=== PATIENT | male | born 1965 | race African-American/Black ===

== ENCOUNTER 2016-09-25 13:56 | Inpatient (IN) | payer MEDICARE, OTHER ==
--- NOTE | ~2016-09-25 | OR ---
Unit #: [id number] #: [id number] Patient: ALEXX QUIROZ [id number] [facility] [address] [place], [place] [address] [id number] Sarah MR#: [id number] NAME: ALEXX QUIROZ ROOM: 218 Date of Procedure: 09/26/2016 Admission Date: 09/25/2016 Surgeon: Fernando Wharton M.D. : 1965 Attending Physician: Khloe Claudio M.D. Primary Care Physician: Remy Rose M.D. OPERATIVE REPORT PROCEDURE PERFORMED 1. Ligation of left radiocephalic arteriovenous fistula. 2. Revision of left arteriovenous fistula to brachiocephalic arteriovenous fistula. PREOPERATIVE DIAGNOSIS Ruptured left radiocephalic arteriovenous fistula. POSTOPERATIVE DIAGNOSIS Ruptured left radiocephalic arteriovenous fistula. [employer] Darian Kidd M.D. INDICATIONS This is a 51-year-old male who has had a long-standing left radiocephalic AV fistula, for nearly eight years. Back in 2014, he was seen by our group for concern for bleeding from the fistula and at that time, a revision was recommended. The patient deferred treatment at that time. The patient presented to [facility] Emergency Room yesterday with concerns for continued bleeding in the past week. He had two aneurysmal segments of his left radiocephalic AV fistula with a nice thrill. He was being set up for a revision of his left radiocephalic AV fistula when today he spontaneously bled again. There was significant bleeding that was not easily controlled with pressure. Upon my evaluation of the patient, it was clear that it would not be controlled with manual pressure, or with a stitch, and I made a decision to take him emergently to the operating room. I talked to the patient about the risks and benefits of the operation. The risks of the operation included, bleeding, nerve injury, injury to blood vessels, and loss of the fistula. The benefit of procedure would be to stop the bleeding, but potentially preserve the fistula. He expressed understanding and elected to proceed with the operation. DESCRIPTION OF PROCEDURE After informed consent was obtained, the patient was brought emergently down to the operating room. I maintained manual pressure, while the patient was induced and intubated without incident. The patient's left arm, chest, and neck were all prepped and draped, while I held manual pressure. We then transitioned to hold manual pressure, as I scrubbed in. I then placed a sterile tourniquet above the upper arm, and this was insufflated up to 300 mmHg. With adequate hemostasis obtained, manual Unit #: [id number] #: [id number] Patient: ALEXX QUIROZ pressure was relieved off the left forearm and there was no active bleeding. I then re-prepped the field with some Betadine. On exam, the patient had a clearly visible ruptured fistula through his skin. I extended the incision in elliptical fashion and proceeded to dissect around the fistula itself. I gained proximal and distal visualization of the fistula and was able to get circumferential control. The fistula was then clamped with a right angle and transected, and both ends were oversewn with 4-0 Prolene in a Suraj suture. There was no significant bleeding from the left forearm incision. I then turned my attention towards the antecubital fossa. The patient had the easily visible cephalic vein. I made a horizontal incision approximately one fingerbreadth below the antecubital fossa and dissected through the subcutaneous tissue. We immediately came upon a very large approximately 7 mm cephalic vein. There was a branch point to the median antecubital vein as well. This was dissected proximally and distally, until we had adequate length. I then turned my attention towards the brachial artery, and entered the brachial sheath with electrocautery. I came upon the brachial artery and paired with its veins. It was dissected free of its veins proximally and distally. There was a posterior branch, which was taken with 3-0 silk ligatures. I then obtained vessel loop control of the brachial artery. At this point, the patient was given 5000 units of heparin. I then ligated the cephalic vein just proximal to its median antecubital vein junction. The vein was widely patent. I then clamped the brachial artery and made an oblique incision with a #11 blade, and then extended the arteriotomy with Knapp scissors. I then beveled my cephalic vein and it was then sewn into the brachial artery with 6-0 Prolene in a running fashion. Prior to completion of anastomosis, I flushed and back bled the fistula. I then completed the anastomosis and adequate hemostasis obtained, with no repair sutures needed. The patient had an easily palpable thrill felt throughout. Adequate hemostasis was obtained with manual pressure. The antecubital fossa incision was then reapproximated with 3-0 Vicryl in deep dermal fashion and 4-0 Monocryl in subcuticular fashion. The incision was then covered with Dermabond. The forearm incision was reapproximated with 3-0 Vicryl in deep dermal fashion and then closed with 3-0 nylon in simple interrupted fashion. At the end of the case, we were short one needle and the needle count was not correct and x-ray did not demonstrate any evidence of the needle in the wound bed. Dictated by... David Ibrahim TD: 09/27/2016 11:23 JOB #: [id number] Unit #: [id number] #: [id number] Patient: ALEXX QUIROZ OPERATIVE REPORT Page 1 of 1 X X PROCEDURE OPERATIVE NOTE
--- NOTE | ~2016-09-25 | CO ---
Unit #: [id number] #: [id number] Patient: ALEXX QUIROZ [id number] [id number] [facility]. [place], [place] [address] [id number] I MR#: [id number] NAME: ALEXX QUIROZ ROOM: 218 Age: 51 Sex: M Admission Date: 09/25/2016 : 1965 Attending Physician: Khloe Claudio M.D. Primary Care Physician: Remy Rose M.D. Consultation Date: 09/25/2016 CONSULTATION REPORT REASON FOR CONSULTATION Left AV fistula, bleeding. HISTORY OF PRESENT ILLNESS This is a 51-year-old male, who has had a long-standing left radiocephalic AV fistula for end-stage renal disease. He states that the fistula has been placed roughly since 2007. He was last seen by Dr. Ann in 09/2014 for concern for bleeding from the fistula, but at that time, reportedly the patient deferred any further intervention. The patient states that dialysis has been going well, he reports no issues with dialysis itself. He states that he has not been bleeding after dialysis, but instead, the fistula has been bleeding spontaneously at home. It occurred again today, he was concerned and went to the emergency room. He was initially seen last week for the same issue, and was established to see a vascular surgeon at [facility]. The patient denies any left hand pain, numbness, or weakness. He has not had any interventions to the fistula that he reports. He dialyzes on Sunday, , Sunday. He denies any fevers, chills, or chest pains. PHYSICAL EXAMINATION VITAL SIGNS: Temperature 98.3, heart rate 89, blood pressure 144/100, saturations 100% on 2 L. CONSTITUTIONAL: No acute distress. Well appearing. EYES: No scleral icterus. NECK: No JVD or carotid bruit. LYMPH: No lymphadenopathy in the neck or groins. PULSE: Left upper extremity has a strong thrill. There were two aneurysmal areas noted in the forearm, no active bleeding noted. He has a visible thrill felt throughout the cephalic vein in his left upper arm. RESPIRATIONS: Nonlabored. GI: Soft, nontender, nondistended. Healed incisions. SKIN: No rashes or ulcerations. PSYCHIATRIC: Normal mood and affect. PAST MEDICAL HISTORY Includes end-stage renal disease, on dialysis; hepatitis C with cirrhosis; coronary artery disease; history of atrial flutter/atrial fibrillation; hypertension; COPD; asthma; ischemic cardiomyopathy; chronic systolic heart failure; obstructive sleep apnea; history of GI bleed; GERD; active smoker. PAST SURGICAL HISTORY Includes ex lap for a GI bleed, testicle removal for testicular cancer, gastric bypass, left AV fistula, and neck surgery. Unit #: [id number] #: [id number] Patient: ALEXX QUIROZ HOME MEDICATIONS Reportedly are sodium bicarb, Xanax, Norvasc, Toprol-XL, Lasix, Catapres, lisinopril, minoxidil, Sensipar, Florastor, Renagel, Protonix, Imdur. ALLERGIES Aspirin, Coumadin, octreotide, dilaudid. SOCIAL HISTORY Lives with family. Positive daily alcohol use, positive tobacco use. FAMILY HISTORY Denies any known history of bleeding disorders, clotting disorders, or aneurysms. REVIEW OF SYSTEMS Other than what is stated above: CONSTITUTIONAL: No fevers or chills. ENT: No ear pain, tinnitus. RESPIRATORY: Denies any shortness of breath, cough, or paroxysmal nocturnal dyspnea. CARDIOVASCULAR: Denies any chest pain or palpitations. GI: Denies any nausea, vomiting, diarrhea. : Denies any hematuria. HEME: Denies any easy bruising, other than what I stated above. ENDOCRINE: Denies any excessive thirst or hunger. MUSCULOSKELETAL: Denies any back pain or neck pain. INTEGUMENTARY: Denies any rash or pruritus. DIAGNOSTIC STUDIES LABORATORY RESULTS: CBC; 5.4, hematocrit 34.7, platelets 202. INR 1.1, BMP is pending. ASSESSMENT AND PLAN 1. End-stage renal disease, dialyzes on Sunday, , Sunday. I believe it is okay for him to continue access for fistula for now, though ideally in different location, where they have currently been accessing it. The entire length of the cephalic vein appears well dilated and has a strong thrill. I told the patient, and also the nurse to pass on report, that his current dressing over his wrist has a procoagulant fibrillar on it, which should not be removed, as it may remove the clot overlying the fistula. This would then result in significant exsanguination. 2. Vascular access with complication, bleeding: The patient has adequate cephalic vein throughout his entire arm. I do not believe it is an issue of central stenosis, but more so just chronic AV fistula, with aneurysmal changes and thinning of the skin overlying it. Given the radiocephalic fistula, one option would be to revise at this location; although, alternatively, I think it may just be better off to ligate this aspect of the fistula, and convert them to a brachiocephalic fistula, below the antecubital fossa. Likely, also place a tunneled dialysis catheter at this time, to ensure adequate maturation of the fistula; although, he should not take that long. The patient was agreeable to the plan. Dictated by... David Ibrahim/morgan Unit #: [id number] #: [id number] Patient: ALEXX QUIROZ TD: 09/26/2016 06:01 JOB #: [id number] CONSULTATION REPORT Page 1 of 1 X X CONSULTATION REPORT
--- NOTE | ~2016-09-25 | DS ---
Unit #: [id number] #: [id number] Patient: ALEXX SEGURA [id number] [address] [address] [id number] I MR#: [id number] NAME: ALEXX SEGURA ROOM: 218 Age: 51 Sex: M Admission Date: 09/25/2016 : 1965 Discharge Date: 09/28/2016 Attending Physician: Khloe Claudio M.D. Primary Care Physician: Remy Rose M.D. DISCHARGE SUMMARY FINAL DIAGNOSES 1. Ruptured left radiocephalic arteriovenous fistula. 2. Left arteriovenous fistula bleeding. 3. Vomiting and abdominal pain with history of dumping syndrome with a history of gastric surgery in the past. 4. Chronic kidney disease, on hemodialysis. 5. Coronary artery disease. 6. Chronic obstructive pulmonary disease. 7. Hypertension. 8. History of hepatitis C. DISCHARGE MEDICATIONS Continue home medications, which are sodium bicarb 650 mg t.i.d., lactulose 10 g q.8 hourly, Desyrel 100 mg at bedtime, Colestid 1 g q.12 hourly, Bentyl 20 mg q.6 hourly, alprazolam as needed, metoprolol 100 mg q.12, atorvastatin 20 mg daily, clonidine 0.2 mg daily, hydroxyzine 50 mg q.8 hourly, Sensipar 30 mg daily, hydrocodone 10/325 one tablet q.4 p.r.n., sevelamer carbonate tablet 800 mg t.i.d., Os-Jason 500 mg b.i.d., vitamin D 1000 units daily. CONSULTATION DURING HOSPITALIZATION 1. Dr. Keane from [facility]. 2. Dr. Wharton from vascular surgery. PROCEDURE PERFORMED DURING HOSPITALIZATION Ligation of the left radiocephalic arteriovenous fistula and revision of the left arteriovenous fistula to brachiocephalic arteriovenous fistula. This procedure was performed by Dr. Wharton on 09/26/2016. DIAGNOSTIC STUDIES LABORATORY RESULTS: Upon discharge, WBC 6.8, hemoglobin 9.5, hematocrit 29.3, platelet count of 160. Sodium 135, potassium 4.9, chloride 98, BUN 71, creatinine 11.6. The patient has had dialysis since then. HOSPITAL COURSE Mr. Alexx Segura is a 51-year-old male, who was admitted to the hospital, because of bleeding in the left AV fistula. Dr. Wharton was consulted and in the hospital, this ruptured. The patient was taken to surgery and revision was done. The patient is doing much better at this time. Dialysis has been done postprocedure. The patient is being discharged home. PHYSICAL EXAMINATION Unit #: [id number] #: [id number] Patient: ALEXX SEGURA VITAL SIGNS: On discharge, blood pressure is 141/69, respiratory rate 18, pulse is 84, temperature 98.2. CHEST: Fair air entry. Decreased at the bases. CVS: Regular rhythm. DISCHARGE INSTRUCTIONS 1. The patient is being discharged home in stable condition. 2. Follow up with primary care provider in 1 week. 3. Medication as per med rec. 4. Continue hemodialysis per Renal. 5. Follow up with Vascular as scheduled. Dictated by... David Eng/morgan TD: 09/28/2016 23:54 JOB #: [id number] DISCHARGE SUMMARY Page 1 of 1 X Khloe Claudio MD X DISCHARGE SUMMARY
--- NOTE | ~2016-09-25 | HP ---
Unit #: [id number] #: [id number] Patient: ALEXX SEGURA [id number] [address] [address] [id number] I MR#: [id number] NAME: ALEXX SEGURA ROOM: 218 Age: 51 Sex: M Admission Date: 09/25/2016 : 1965 Attending Physician: Khloe Claudio M.D. Primary Care Physician: Remy Rose M.D. HISTORY AND PHYSICAL The patient was admitted on 09/25/16 with bleeding from the left dialysis shunt. HISTORY OF PRESENTING ILLNESS Mr. Alexx Segura is a 51-year-old -[place] male with multiple medical problems. He has had longstanding radiocephalic AV fistula. He has a history of end stage failure and is on hemodialysis. It has been going on for the last few days, a few times that he has bled. It bleeds spontaneously. It occurred while he was driving. EMS was called and he was brought to ER. The patient came to ER even last week for the same issue but he was discharged to see a vascular surgeon as an outpatient. The patient does not complain of any pain, does not complain of any weakness or numbness. His only complaint is bleeding. He has end stage renal disease on hemodialysis per Dr. Keane. He does not complain. Denies any history of fever, history of chills. No history of chest pain, no history of abdominal pain, no shortness of breath, no palpitations. PAST MEDICAL HISTORY 1. End stage renal disease, on hemodialysis. 2. Hepatitis C. 3. Coronary artery disease. 4. History of arrhythmias. 5. Hypertension. 6. Hyperlipidemia. 7. COPD. 8. Cardiomyopathy. 9. Obstructive sleep apnea. 10. GERD. PAST SURGICAL HISTORY 1. Abdominal surgery for GI bleed. 2. Testicle removal for testicular cancer. 3. History of gastric bypass. 4. Left AV fistula placement. 5. Neck surgery. SOCIAL HISTORY The patient lives at home with his family. He does smoke and drinks alcohol off and on. ALLERGIES The patient is allergic to aspirin, Coumadin, octreotide and Dilaudid. FAMILY HISTORY Unit #: [id number] #: [id number] Patient: ALEXX SEGURA Unremarkable. REVIEW OF SYSTEMS No history of dizziness, no history of syncopal episode. No history of fever, chills or rigors. No history of weakness or numbness or tingling. No history of chest pain, no history of abdominal pain, no history of constipation, diarrhea. PHYSICAL EXAMINATION GENERAL: The patient is in no respiratory distress. HEENT: Head is normocephalic. Eyes - pupils are equal and reacting to light. No conjunctival congestion. NECK: Supple. CHEST: Fair air entry. No additional sounds. CVS: S1, S2 positive. Regular rhythm. EXTREMITIES: Left extremity - two aneurysmal areas noted in the forearm. Visible thrill was felt. Negative edema. ABDOMEN: Soft, no tenderness. SKIN: No rashes. DIAGNOSTIC STUDIES LABORATORY: WBC 5.4, hematocrit 34.7, platelet count 202, INR 1.1. ASSESSMENT AND PLAN The patient is being admitted to Med/Tre unit with: 1. Bleeding from the dialysis shunt on the left arm. 2. Vomiting/abdominal pain: The patient has a history of dumping syndrome after he had his gastric surgery but that has resolved at this time. 3. Chronic kidney disease, on hemodialysis. 4. Coronary artery disease which is stable. 5. Chronic obstructive pulmonary disease is stable. 6. Hypertension is stable. 7. History of hepatitis C. Med Rec has been reviewed. Vascular surgeon has been consulted. Dr. Keane has been consulted. [facility]charge summary from [facility] will be obtained. Plan of care has been discussed with patient. Refer to progress note for further orders. Dictated by David Eng TD: 09/27/2016 10:35 JOB #: [id number] (Continuation) Dictated by David Eng Unit #: [id number] #: [id number] Patient: ALEXX SEGURA TD: 09/27/2016 10:44 JOB #: [id number] HISTORY AND PHYSICAL Page 1 of 1 X Khloe Claudio MD HISTORY AND PHYSICAL
[~2016-09-25 13:56] MED LIST: ALBUTEROL17 GM INH; ALPRAZOLAM ER1 MG PO; ALPRAZOLAM PO; ANTACID650 MG PO; ASPIRIN ENTERI325 M1 PO; CALCIUM ACETAT667 M1 PO; CARAFATE PO; CARAFATE1 GM PO; CARDURA4 M1 PO; CATAPRES0.1 MG PO; CATAPRES0.3 MG PO; CLARITIN10 M2 PO; CLONIDINE PO; DAKIN'S MODIF1000 ML EXT; DULOXETINE HCL60 MG PO; FLONASE 0.05% N16 G1; FLORASTOR250 M1 PO; FUROSEMIDE40 MG PO; HYDRALAZINE HC100 MG PO; HYDRALAZINE HCL25 MG PO; ISORDIL TEMBIDS40 M1 PO; ISORDIL40 MG PO; ISOSORBIDE DINI40 MG PO; LASIX PO; LEVOFLOXACIN250 MG PO; LISINOPRIL PO; LISINOPRIL2.5 MG PO; LISINOPRIL20 MG PO; LISINOPRIL5 MG PO; LOPRESSOR PO; METOPROLOL SUCC25 MG PO; MINOXIDIL2.5 MG PO; NORVASC PO; NORVASC10 MG PO; OXYCODONE HCL10 MG PO; PERCOCET 10/3251 TAB PO; PHOSLO667 M1 PO; PHOSLO667 MG PO; PROTONIX PO; RENAGEL800 MG PO; SENSIPAR30 MG PO; SENSIPAR60 MG PO; SOD BICARBONATE PO; SODIUM BICARBO650 MG PO; TOPROL XL 50 MG50 MG PO; TUSSIONEX PENN473 ML PO; VANCOMYCIN HCL1 GM IV; VANCOMYCIN1.5 GM/252 IV; XANAX1 MG PO; [UNRECOGNIZED DRUG - REMARK]
[2016-09-25] MEDS ORDERED: LIPITOR20 MG PO (14:11)
[2016-09-25] MEDS ORDERED: CALCIUM 500 +1 EAC6 PO (14:12)
[2016-09-25] MEDS ORDERED: [UNRECOGNIZED DRUG - REMARK] PO (14:13)
[2016-09-25] MEDS ORDERED: VITAMIN D1000 UNI1 PO (14:13)
[2016-09-25] MEDS ORDERED: COLESTIPOL HCL11 PO (14:16)
[2016-09-25] MEDS ORDERED: BENTYL20 MG PO (14:17)
[2016-09-25] MEDS ORDERED: DIPHENOXYLATE/A1 TA2 PO (15:12)
[2016-09-25] MEDS ORDERED: HYDRALAZINE HCL50 MG PO (15:13)
[2016-09-25] MEDS ORDERED: TOPROL XL100 MG PO (15:14)
[2016-09-25] MEDS ORDERED: LACTULOSE10 G/15 M3 PO (15:14)
[2016-09-25] MEDS ORDERED: ONDANSETRON HCL4 M1 PO (15:15)
[2016-09-25 15:16] LABS: BASOPHIL% 0.9 % (0-2.5); EOSINOPHIL# 0.1 X10e3 (0-0.7); EOSINOPHIL% 2.4 % (0.0-7.0); HEMATOCRIT 34.7 % (38.0-50.0); HEMOGLOBIN 11.2 gm/dL (13.0-16.0); LYMPHOCYTE# 0.9 X10e3 (1.0-3.5); LYMPHOCYTE% 16.8 % (17.0-45.0); MEAN CELL VOLUME 94.2 FL (83-96); MEAN CORPUSCULAR HEMOGLOBIN 30.5 PG (28-34); MEAN CORPUSCULAR HGB CONC 32.4 g/dL (30-36); MEAN PLATELET VOLUME 9.3 FL (6.5-11.5); MONOCYTE# 0.3 X10e3 (0-1.0); MONOCYTE% 6.4 % (3.0-12.0); NEUTROPHIL# 3.9 X10e3 (1.5-7.1); NEUTROPHIL% 73.5 % (40-75); PLATELET COUNT 202 X10e3 (140-420); RED BLOOD COUNT 3.68 X10e (3.90-5.60); RED CELL DISTRIBUTION WIDTH 17.1 % (11.0-15.5); WHITE BLOOD COUNT 5.4 X10e3 (4.0-10.5)
[2016-09-25] MEDS ORDERED: RENVELA800 MG DOB (15:16)
[2016-09-25 15:17] LABS: DIFF IND NO
[2016-09-25] MEDS ORDERED: ANTACID650 MG PO (15:17)
[2016-09-25] MEDS ORDERED: TRAZODONE HCL5 GM PO (15:17)
[2016-09-25] MEDS ORDERED: CATAPRES-TTS-20.2 MG PO (15:19)
[2016-09-25] MEDS ORDERED: HYDROCODON-ACE1 EAC5 PO ×2 (15:28→15:29)
[2016-09-25 15:34] LABS: INR 1.1; PARTIAL THROMBOPLASTIN TIME 27.8 SECONDS (23.5-31.3); PROTHROMBIN TIME (PATIENT) 11.5 SECONDS (9.6-11.5)
[2016-09-25 16:19] LABS: BILIRUBIN, DIRECT 0.1 mg/dL (0.0-0.2); BILIRUBIN,INDIRECT 0.7 mg/dL (0.0-0.9); BILIRUBIN,TOTAL 0.8 mg/dL (0.2-2.0); BUN/CREATININE RATIO 6.44; CALCIUM SERUM 8.8 mg/dL (8.4-10.2); CREATININE SERUM 12.1 mg/dL (0.6-1.4); GLOM FILT RATE Estimated 4.9 mL/min (>60); POTASSIUM 4.4 mmol/L (3.5-5.1); PROTEIN TOTAL SERUM 8.5 g/dL (6.0-8.3)
[2016-09-25] MEDS ORDERED: ALPRAZOLAM (16:37)
[2016-09-26 07:07] LABS: HEMATOCRIT 34.6 % (38.0-50.0); HEMOGLOBIN 11.2 gm/dL (13.0-16.0); MEAN CELL VOLUME 94.9 FL (83-96); MEAN CORPUSCULAR HEMOGLOBIN 30.6 PG (28-34); MEAN CORPUSCULAR HGB CONC 32.3 g/dL (30-36); MEAN PLATELET VOLUME 9.5 FL (6.5-11.5); RED BLOOD COUNT 3.65 X10e (3.90-5.60); RED CELL DISTRIBUTION WIDTH 17.2 % (11.0-15.5)
[2016-09-26 07:13] LABS: WHITE BLOOD COUNT 8.4 X10e3 (4.0-10.5)
[2016-09-26] MEDS ORDERED: CLONIDINE PO (07:37)
[2016-09-27 05:30] LABS: HEMATOCRIT 30.4 % (38.0-50.0); HEMOGLOBIN 9.9 gm/dL (13.0-16.0); MEAN CELL VOLUME 93.8 FL (83-96); MEAN CORPUSCULAR HEMOGLOBIN 30.6 PG (28-34); MEAN CORPUSCULAR HGB CONC 32.6 g/dL (30-36); MEAN PLATELET VOLUME 9.4 FL (6.5-11.5); RED BLOOD COUNT 3.24 X10e (3.90-5.60); RED CELL DISTRIBUTION WIDTH 17.4 % (11.0-15.5); WHITE BLOOD COUNT 7.7 X10e3 (4.0-10.5)
[2016-09-27 05:46] LABS: INR 1.1; PROTHROMBIN TIME (PATIENT) 11.6 SECONDS (9.6-11.5)
[2016-09-27 06:23] LABS: BUN/CREATININE RATIO 6.12; CALCIUM SERUM 7.6 mg/dL (8.4-10.2); CREATININE SERUM 11.6 mg/dL (0.6-1.4); GLOM FILT RATE Estimated 5.1 mL/min (>60); POTASSIUM 4.9 mmol/L (3.5-5.1)
[2016-09-28 05:56] LABS: HEMATOCRIT 29.3 % (38.0-50.0); HEMOGLOBIN 9.5 gm/dL (13.0-16.0); MEAN CELL VOLUME 95.2 FL (83-96); MEAN CORPUSCULAR HEMOGLOBIN 30.9 PG (28-34); MEAN CORPUSCULAR HGB CONC 32.5 g/dL (30-36); MEAN PLATELET VOLUME 9.7 FL (6.5-11.5); RED BLOOD COUNT 3.08 X10e (3.90-5.60); RED CELL DISTRIBUTION WIDTH 17.7 % (11.0-15.5); WHITE BLOOD COUNT 6.8 X10e3 (4.0-10.5)
[2016-09-28 15:36] LABS: HEP B SURFACE AG Nonreactive (Nonreactive)
== END 2016-09-28 18:12 | disposition home or self-care (01) | DRG 252 ==
LOC: CED 13:56 → CEDOF 14:14 → C2A 16:07
PROVIDERS: Internal Medicine Nephrology; Physician Assistant Medical; Surgery
PROC: 05LF0ZZ Occlusion of Left Cephalic Vein, Open Approach (ICD-10-PCS; 2016-09-26)
PROC: 03180ZD Bypass Left Brachial Artery to Upper Arm Vein, Open Approach (ICD-10-PCS; 2016-09-26)
PROC: 5A1D60Z (ICD-10-PCS; 2016-09-26)
PROC: 30233N1 Transfusion of Nonautologous Red Blood Cells into Peripheral Vein, Percutaneous Approach (ICD-10-PCS; principal; 2016-09-26 15:30)
DX: T82.838A Hemorrhage due to vascular prosthetic devices, implants and grafts, initial encounter (principal); N18.6 End stage renal disease; I13.2 Hypertensive heart and chronic kidney disease with heart failure and with stage 5 chronic kidney disease, or end stage renal disease; E11.22 Type 2 diabetes mellitus with diabetic chronic kidney disease; K73.9 Chronic hepatitis, unspecified; I50.22 Chronic systolic (congestive) heart failure; F41.9 Anxiety disorder, unspecified; M51.36 Other intervertebral disc degeneration, lumbar region; E66.9 Obesity, unspecified; I25.10 Atherosclerotic heart disease of native coronary artery without angina pectoris; J44.9 Chronic obstructive pulmonary disease, unspecified; J45.909 Unspecified asthma, uncomplicated; I48.91 Unspecified atrial fibrillation; I25.5 Ischemic cardiomyopathy; K21.9 Gastro-esophageal reflux disease without esophagitis; Z88.6 Allergy status to analgesic agent; Z88.8 Allergy status to other drugs, medicaments and biological substances; G47.33 Obstructive sleep apnea (adult) (pediatric); I72.9 Aneurysm of unspecified site
CPT/HCPCS: 36415; 80048; 80076; 82947; 85025; 85027; 85610; 85730; 86850; 86900; 86901; 86923; 87340; 99285; J0330; J0690; J1644; J1815; J2250; J2270; J2370; J2405; J2765; J3010; P9016; Q4081

== ENCOUNTER 2016-09-29 17:18 | Inpatient (IN) | payer MEDICARE, OTHER ==
--- NOTE | ~2016-09-29 | US140 ---
[facility] A Service of [facility] RADIOLOGY TEXT RESULTS PATIENT: ALEXX QUIROZ LOCATION: [facility] [address]-20 : [birth year] UNIT #: [id number] AGE: [address]: Dmitri Mares MD SEX: M ORDER DR: [id number] [facility] [address] [place], [place] [address] [id number] I MR#: [id number] Acc #: [id number] NAME: ALEXX QUIROZ : 1965 SEX: M STUDY DATE/TIME: 09/29/2016 16:32 UNIT: [facility] ROOM: 42937 STUDY DESCRIPTION: US UE Veins Unilat or Ltd Stdy Attending Physician: Dmitri Mares M.D. Ordering Physician: Barry Gonzalez M.D. Primary Care Physician: Go Lam A.P.R.N. MEDICAL IMAGING REPORT This report is preliminary unless electronic signature is present EXAM Left upper extremity DVT study dated 09/29/2016. COMPARISON None. HISTORY Left upper extremity swelling and pain for 3 days. First fistula at the wrist, second fistula in the antecubital fossa with recent replacement 3 days ago. FINDINGS Structural champion-scale analysis, color-Doppler flow analysis and waveform analysis of the left upper extremity major veins were performed as per the protocol. Visualized portions of the left internal jugular vein, left subclavian vein, left axillary vein demonstrate expected phasic spontaneous flow with respiration. There is a fistula noted in the proximal left cephalic vein. No obvious flow is seen in the distal cephalic vein nor is it compressible. There is a fistula noted in the proximal and distal basilic vein also. The superficial brachial vein does not demonstrate flow and is not compressible. IMPRESSION 1. Deep venous thrombus is seen in the brachial vein. 2. The cephalic vein contains fistula but there is also superficial venous thrombosis noted in the distal cephalic vein which could not be compressed. 3. Attempts are made to contact the referring physician Dr. Levi Mason at [facility] at 05:20 p.m. on 09/29/2016. Findings were discussed with Christa Cross who was covering for him at 05:40 p.m. on 09/29/2016. Dictated by... [facility] A Service of [facility] RADIOLOGY TEXT RESULTS PATIENT: ALEXX QUIROZ LOCATION: [facility] [address]89-13 : [birth year] UNIT #: [id number] AGE: [address]: Dmitri Mares MD SEX: M ORDER DR: Neli Lopez M.D. THIS IS AN ELECTRONICALLY VERIFIED REPORT Neli Lopez M.D. at 10/04/2016 8:44 AM CPR/rnr TD: 09/30/2016 02:30 JOB #: [id number] MEDICAL IMAGING REPORT Page 1 of 1 COPY
--- NOTE | ~2016-09-29 | HP ---
Unit #: [id number] #: [id number] Patient: ALEXX SEGURA [id number] [address] [address] [id number] I MR#: [id number] NAME: ALEXX SEGURA ROOM: 46882 Age: 51 Sex: M Admission Date: 09/29/2016 : 1965 Attending Physician: Dmitri Mares M.D. Primary Care Physician: Go Lam A.P.R.N. HISTORY AND PHYSICAL ADMISSION DIAGNOSES 1. New acute DVT in the left upper extremity. 2. End stage renal disease on hemodialysis. 3. Status post left AV fistula repair secondary to rupture. 4. History of coronary artery disease. 5. History of COPD. 6. History of hepatitis C. 7. Hypertension. HISTORY OF PRESENT ILLNESS Mr. Segura is a 51-year-old, -Israeli gentleman patient of Dr. Rose who was discharged from our service yesterday when he was admitted and treated for his ruptured left AV fistula. He is status post repair per vascular surgery, was stabilized, and discharged yesterday; however, comes back today with the complaints of increasing pain and swelling. Ultrasound was done, which showed the acute brachial vein DVT. Patient denies any other symptoms. Denies any chest pain, shortness of air, and dyspnea. Denies any fever, chills, nausea, vomiting, diarrhea, headache, or dizziness. REVIEW OF SYSTEMS So, 12-point review of systems on this patient is basically negative, except as above. PAST MEDICAL HISTORY Significant for end stage renal disease on hemodialysis, history of hep. C, history of coronary artery disease, history of arrhythmias, history of hypertension, dyslipidemia, COPD, cardiomyopathy, obstructive sleep apnea, and GERD. PAST SURGICAL HISTORY Significant for, again, recent AV fistula repair and, also, orchiectomy secondary to testicular cancer, history of gastric bypass, history of AV fistula placement, and history of neck surgery. MEDICATIONS Home medications on this gentleman include: 1. Lipitor. 2. Calcium with vitamin D. 3. Colestipol. 4. Bentyl. 5. Zofran. 6. Toprol XL. 7. Lactulose. Unit #: [id number] #: [id number] Patient: ALEXX SEGURA 8. Hydralazine. 9. Renvela. 10. Antacid. 11. Trazodone. 12. Hydrocodone. 13. Xanax. 14. Catapres. ALLERGIES Allergic to aspirin, warfarin, octreotide, and Dilaudid. SOCIAL HISTORY He is an active smoker and he is drinking alcohol occasionally. FAMILY HISTORY Unremarkable. PHYSICAL EXAMINATION GENERAL APPEARANCE: He is a 51-year-old gentleman in no acute distress. VITAL SIGNS: BP 138/74, heart rate 90, respirations 23, and temperature 98.3. HEENT: Head is atraumatic. Pupils are equal, round, and reactive to light and accommodation. Extraocular muscles intact. Oropharynx clear. NECK: Supple. No mass. No JVD. No bruits. CHEST: Diminished bilaterally at the bases. CARDIOVASCULAR: S1 and S2. No murmurs. ABDOMEN: Soft, nontender, and nondistended. LOWER EXTREMITIES: Without any cyanosis, clubbing, or edema. UPPER EXTREMITIES: Left upper extremity with tenderness and swelling. NEUROLOGIC: Patient grossly intact. No focal deficits. DIAGNOSTIC STUDIES IMAGING: Ultrasound as above. LABORATORY: Chemistry significant for BUN and creatinine of 78 and 13.1, bicarb of 21, and calcium 7.9. Coagulation panel: PT, INR, and PTT 11, 1, and 27.8. Hematology shows white count 7.5 and H and H 9.5 and 29.7. ASSESSMENT AND PLAN 1. Acute DVT, started on IV heparin, and ask hematology evaluation. 2. End stage renal disease. Continue hemodialysis per nephrology. 3. History of coronary artery disease. Continue home meds. 4. History of hypertension. Continue home meds. 5. History of hepatitis C. Continue (1) . 6. Dyslipidemia. Continue statins. 7. History of COPD at the baseline. 8. History of cardiomyopathy, again, at the baseline. Continue home meds. 9. GI and DVT prophylaxes. Continue PPIs and IV heparin. Dictated by David Ortiz TD: 09/30/2016 07:09 Unit #: [id number] #: [id number] Patient: ALEXX SEGURA JOB #: [id number] HISTORY AND PHYSICAL Page 1 of 1 X Dmitri Maers MD HISTORY AND PHYSICAL
[~2016-09-29 17:18] MED LIST changes: +ALPRAZOLAM; +BENTYL20 MG PO; +CALCIUM 500 +1 EAC6 PO; +CATAPRES-TTS-20.2 MG PO; +COLESTIPOL HCL11 PO; +DIPHENOXYLATE/A1 TA2 PO; +HYDRALAZINE HCL50 MG PO; +HYDROCODON-ACE1 EAC5 PO; +LACTULOSE10 G/15 M3 PO; +LIPITOR20 MG PO; +ONDANSETRON HCL4 M1 PO; +RENVELA800 MG DOB; +TOPROL XL100 MG PO; +TRAZODONE HCL5 GM PO; +VITAMIN D1000 UNI1 PO; +[UNRECOGNIZED DRUG - REMARK] PO
[2016-09-29 19:04] LABS: BASOPHIL% 0.5 % (0-2.5); EOSINOPHIL# 0.8 X10e3 (0-0.7); EOSINOPHIL% 10.8 % (0.0-7.0); HEMATOCRIT 29.7 % (38.0-50.0); HEMOGLOBIN 9.6 gm/dL (13.0-16.0); LYMPHOCYTE# 1.1 X10e3 (1.0-3.5); LYMPHOCYTE% 14.2 % (17.0-45.0); MEAN CELL VOLUME 95.3 FL (83-96); MEAN CORPUSCULAR HGB CONC 32.5 g/dL (30-36); MEAN PLATELET VOLUME 9.4 FL (6.5-11.5); MONOCYTE# 0.6 X10e3 (0-1.0); MONOCYTE% 7.7 % (3.0-12.0); NEUTROPHIL% 66.8 % (40-75); PLATELET COUNT 175 X10e3 (140-420); RED BLOOD COUNT 3.11 X10e (3.90-5.60); RED CELL DISTRIBUTION WIDTH 17.7 % (11.0-15.5); WHITE BLOOD COUNT 7.5 X10e3 (4.0-10.5)
[2016-09-29 19:07] LABS: DIFF IND NO
[2016-09-29 19:32] LABS: ALBUMIN SERUM 3.7 g/dL (3.5-5.0); BILIRUBIN,TOTAL 0.5 mg/dL (0.2-2.0); BUN/CREATININE RATIO 5.95; CALCIUM SERUM 7.9 mg/dL (8.4-10.2); CREATININE SERUM 13.1 mg/dL (0.6-1.4); GLOM FILT RATE Estimated 4.4 mL/min (>60); POTASSIUM 5.1 mmol/L (3.5-5.1)
== END 2016-09-30 22:20 | disposition left against medical advice (07) | DRG 299 ==
LOC: CED 17:18 → CEDOF 19:20
PROVIDERS: Nurse Practitioner
PROC: 5A1D00Z (ICD-10-PCS; principal; 2016-09-29)
DX: I82.622 Acute embolism and thrombosis of deep veins of left upper extremity (principal); N18.6 End stage renal disease; I12.0 Hypertensive chronic kidney disease with stage 5 chronic kidney disease or end stage renal disease; I42.9 Cardiomyopathy, unspecified; Z99.2 Dependence on renal dialysis; I25.10 Atherosclerotic heart disease of native coronary artery without angina pectoris; J44.9 Chronic obstructive pulmonary disease, unspecified; Z86.19 Personal history of other infectious and parasitic diseases; E78.5 Hyperlipidemia, unspecified; G47.33 Obstructive sleep apnea (adult) (pediatric); Z88.6 Allergy status to analgesic agent; Z88.8 Allergy status to other drugs, medicaments and biological substances
CPT/HCPCS: 80053; 85025; 85610; 93971; 99285